=== PATIENT | female | born 1995 | race Caucasian/White ===

== ENCOUNTER 2020-06-04 13:55 | Observation (INO) | payer OTHER, SELFPAY ==
--- NOTE | 2020-06-04 13:50 | PC.NURSE ---
Patient to ED with c/o being currently 32 weeks and has possibly lost mucus plug. Report given to Rosa at this time and transferred to OB at this time via wheelchair.
[2020-06-04 14:10] VITALS: BMI 26.6
[2020-06-04 14:35] VITALS: BP 112/59; PULSE 71
[2020-06-04 14:46] VITALS: BP 123/60; PULSE 82
--- NOTE | 2020-06-07 18:25 | PM.OBTRLD ---
OB - Triage/Final Diagnosis Visit Information Date of evaluation: 06/04/20 Reason for evaluation: threatened labor
== END 2020-06-04 14:50 | disposition home or self-care (01) ==
PROVIDERS: Admitting Provider Obstetrics & Gynecology; Visit Provider Obstetrics & Gynecology
DX: O47.03 False labor before 37 completed weeks of gestation, third trimester (principal); Z3A.32 32 weeks gestation of pregnancy
CPT/HCPCS: 84112; G0378; G0379

== ENCOUNTER 2020-07-20 06:05 | Inpatient (IN) | payer OTHER, SELFPAY ==
[2020-07-20] VITALS (97 sets, daily range): BP systolic 104–141; BP diastolic 44–101; PULSE 64–112; RESP 16–18; TEMP 35.7–37; O2SAT 80–100; BMI 26.7
--- NOTE | 2020-07-20 06:05 | LDADM ---
This patient, Huma Fortune, was admitted to Labor/Delivery/Recovery 102 on 07/20/20 at 06:05. Plans for labor, pain management and were discussed with patient. Patient/family oriented to hospital policies and general routines including ID bracelet, bed and alarms, visiting hours, pain management, procedures, bathroom and other care routines, personal items, smoking policy, room service/diet and guest tray routines, infant security routines, and visiting hours. Patient/Family are encouraged to report perceived risks to care and to ask questions if they do not understand what they are told or what they should do. See OBIX for further documentation.
[2020-07-20 06:42] LABS: Basophils Percent Auto 0.5 % (0.2-1.2); Eosinophils Absolute Auto 0.1 K/mm3 (0-0.3); Eosinophils Percent Auto 0.6 % (0-4.4); Hematocrit 27.7 % (37.0-47.0); Hemoglobin 8.6 g/dL (12.0-15.0); Immature Granulocyte Absolute 0.05 K/mm3 (0.00-0.031); Immature Granulocyte Percent A 0.6 % (0-0.5); Lymphocytes Absolute Auto 1.22 K/mm3 (0.9-3.2); Lymphocytes Percent Auto 15.6 % (18.3-44.2); Mean Corpuscular Hemoglobin 23.2 pg (26-34); Mean Corpuscular Volume 74.9 fl (80-100); Mean Platelet Volume 9.5 fl (7.4-10.4); Monocytes Absolute Auto 0.8 K/mm3 (0.1-0.6); Monocytes Percent Auto 10.5 % (2.6-8.5); Neutrophils Absolute Auto 5.7 K/mm3 (1.3-6.7); Neutrophils Percent Auto 72.2 % (45.5-73.1); Platelet Count Result 211 k/mm3 (150-375); Red Cell Distribution Width 17.5 % (11.5-14.5); White Blood Count 7.8 K/mm3 (4.5-10.0)
[2020-07-20] MEDS: OXYTOCIN 30 UNITS/NS 500 ML 30 UNITS/500 ML BAG IV CONT (06:50)
[2020-07-20] MEDS: LACTATED RINGERS 1,000 ML 125 ML IV CONT ×3 (06:51→13:36)
[2020-07-20 07:56] LABS: Rapid Plasma Reagin Non-Reactive (NonReactive)
--- NOTE | 2020-07-20 08:03 | WPDOBADMIT ---
Obstetrics - Admit Note Admission Note: record reviewed. No pertinent additions to the history and/or any subsequent changes in the physical findings that are not consistent with the expected course of the were found. MIL 39 weeks SVE /-1 arom clear odorless fluid, anticipate vaginal delivery Additions to the history and/or subsequent changes in the physical findings follow. None.
--- NOTE | 2020-07-20 11:44 | WPDANESEPP ---
Anes - Eval Pre Procedure Procedure: labor epidural Date/Time: 07/20/20 11:44 Surgeon: rodney Preop Diagnosis: pain during labor Pre Op Diagnosis: Induction of Labor Patient Data Age: 25 Gender: F Height: 1.65 m Weight: 73 kg Last Vital Signs Temp 35.8 C L 07/20/20 11:37 Pulse 87 07/20/20 11:41 BP 125/76 07/20/20 11:41 Pulse Ox 100 07/20/20 11:43 Allergies Allergy/AdvReac Type Severity Reaction Status Date / Time No Known Allergies Allergy Mild Verified 07/19/20 14:56 Home Medications Medication Instructions Recorded Confirmed Type PNV cmb#95-ferrous fumarate-FA 1 tablet PO DAILY 07/19/20 07/20/20 History [] valacyclovir 1,000 mg PO Q12H 07/19/20 07/20/20 History Laboratory Tests 07/20/20 07/20/20 07/20/20 06:26 06:26 06:26 WBC 7.8 K/mm3 K/mm3 (4.5-10.0) RBC 3.70 M/mm3 L M/mm3 (4.2-5.4) Hgb 8.6 g/dL L g/dL (12.0-15.0) Hct 27.7 % L % (37.0-47.0) MCV 74.9 fl L fl (80-100) MCH 23.2 pg L pg (26-34) MCHC 31.0 g/dl L g/dl (32-36) RDW 17.5 % H % (11.5-14.5) Plt Count 211 k/mm3 k/mm3 (150-375) MPV 9.5 fl fl (7.4-10.4) Immature Gran % (Auto) 0.6 % H % (0-0.5) Neut % (Auto) 72.2 % % (45.5-73.1) Lymph % (Auto) 15.6 % L % (18.3-44.2) [place] % (Auto) 10.5 % H % (2.6-8.5) Eos % (Auto) 0.6 % % (0-4.4) Baso % (Auto) 0.5 % % (0.2-1.2) Lymph # (Auto) 1.22 K/mm3 K/mm3 (0.9-3.2) [place] # (Auto) 0.8 K/mm3 H K/mm3 (0.1-0.6) Eos # (Auto) 0.1 K/mm3 K/mm3 (0-0.3) Baso # (Auto) 0.0 K/mm3 K/mm3 (0.0-0.1) Abs Immat Gran (auto) 0.05 K/mm3 H K/mm3 (0.00-0.031) Absolute Neuts (auto) 5.7 K/mm3 K/mm3 (1.3-6.7) Absolute Nucleated RBC 0.0 K/mm3 K/mm3 (0.0-0.012) Nucleated RBC % 0.0 % % (0.0-0.2) RPR Non-reactive (NonReactive) Blood Type B Positive Antibody Screen Negative Patient hx anesthesia problems: none Family hx anesthesia problems: none [facility] Family History Family History (Updated 07/19/20 @ 14:59 by Angelika Rivas RN) Other Unknown family medical history Social History Social History Smoking status: Former smoker Second hand tobacco smoke exposure: Yes Substance use: current Last use: 07/18/2020 Spiritual care concerns: No Exam Day of Procedure 07/20/20 11:44
[2020-07-20 12:16] LABS: Barbiturate Screen Urine Negative (Negative); Benzodiazepines Screen Urine Negative (Negative)
[2020-07-20 12:18] LABS: Amphetamine Screen Urine Negative (Negative); Cannabinoid Screen Urine Positive (Negative); Cocaine Screen Urine Negative (Negative); Methadone Screen Urine Negative (Negative); Opiate Screen Urine Negative (Negative); Phencyclidine Screen Urine Negative (Negative)
--- NOTE | 2020-07-20 14:01 | PM.OBPRVD ---
OB - Delivery Note Procedure Delivery date: 07/20/20 Procedure: Vaginal delivery. Intrapartal events: None Induction method: AROM and per pitocin protocol Delivery monitor: external FHT and external uterine Route of delivery: Episiotomy description: None Laceration description: None Specimen: No Estimated blood loss (mL): 275 Anesthesia type: Epidural Disposition: other () Baby Date of : 07/20/20 Time of : 13:49 Weeks of gestation at delivery: 39 Infant gender: Female Weight (pounds): 6 Weight (ounces): 14 presentation: vertex position: Right Occiput Posterior Placenta delivery description: Spontaneous cord vessel description: 3 Vessels, Nuchal Cord, Loose and Reduced score one minute: 9 score five minutes: 9
[2020-07-20] MEDS: OXYTOCIN 30 UNITS/NS 500 ML 30 UNITS/500 ML BAG 125 UNITS IV CONT (14:41)
[2020-07-20] MEDS: IBUPROFEN 600 MG TABLET PO (17:29)
--- NOTE | 2020-07-20 17:30 | PC.NURSE ---
PT arrived on unit via wheelchair accompanied by and fob. PT oriented to room 277 and surrounding area. PT introductions made and plan of care discussed per post , pain management, breast feeding, daily care activities. Welcome packet reviewed and discussed. PT verbalized understanding of such care.
[2020-07-20] MEDS: DOCUSATE SODIUM 100 MG CAPSULE PO (17:31)
[2020-07-20] MEDS: POLYSACCHARIDE IRON COMPLEX 150 MG CAPSULE PO (17:31)
[2020-07-20] MEDS: LANOLIN (LANSINOH) 7.5 GM CREAM 1 APPLIC TOPICAL (17:32)
[2020-07-20] MEDS: valACYclovir HCL 500 MG TABLET 1000 MG PO (19:13)
[2020-07-21] MEDS: IBUPROFEN 600 MG TABLET PO ×3 (00:32→16:07)
[2020-07-21 05:08] LABS: Hematocrit 24.5 % (37.0-47.0); Hemoglobin 7.6 g/dL (12.0-15.0)
[2020-07-21 07:30] VITALS: PULSE 72; RESP 18; O2SAT 100
[2020-07-21 07:40] VITALS: BP 100/63; PULSE 72; RESP 18; TEMP 36.6; O2SAT 100
[2020-07-21] MEDS: POLYSACCHARIDE IRON COMPLEX 150 MG CAPSULE PO (07:44)
[2020-07-21] MEDS: DOCUSATE SODIUM 100 MG CAPSULE PO (07:44)
[2020-07-21] MEDS: MULTIVIT/MIN/PREN/FOL AC/IRON TABLET 1 TAB PO (07:44)
[2020-07-21] MEDS: valACYclovir HCL 500 MG TABLET 1000 MG PO (07:45)
--- NOTE | 2020-07-21 08:02 | PM.OBPNVD ---
OB - PN: Subj Subjective Date/time seen: 07/21/20 08:02 Patient comments: no complaints and pain well controlled baby status: doing well OB - PN: Obj Data Labs CBC & Chem 7: 07/21/20 04:25 Labs: Laboratory Results - last 24 hr 07/20/20 07/21/20 09:48 04:25 Hgb 7.6 L Hct 24.5 L Urine Opiates Screen Negative Urine Methadone Screen Negative Ur Barbiturates Screen Negative Ur Phencyclidine Scrn Negative Ur Amphetamine Screen Negative U Benzodiazepines Scrn Negative Urine Cocaine Screen Negative U Cannabinoids Screen Positive A OB - PN A/P Plan day: 1 Plan: routine care and discharge home Comments: Pt desires discharge. RTC in 4 weeks. Time Spent With Patient Time: Total time spent is greater than 50% in coordination of care (as documented) at patient's floor/unit and/or counseling patient: Review of Systems Review of Systems: All systems reviewed & are unremarkable except as noted in HPI and below Exam Narrative: Exam Narrative: Fundus firm. Vaginal flow controlled. Neg edema. Const: General: comfortable Resp: Effort & Inspection: normal respiratory effort Psych: Appearance: grossly normal Affect: normal affect Attitude: cooperative Judgement: Good judgement present (Psych)
--- NOTE | 2020-07-21 09:30 | PC.NURSE ---
Observed mother is able to independently latch with appropriate positioning/alignment. She denies any nipple discomfort, is feeding as required and waking infant to feed if needed. has had several effective feedings in the past 24 hours, and is currently meeting outcomes for weight, output, jaundice and feeding frequencies. Mother chooses to breast and bottle feed. Mother states she feels confident to continue effective /supplementation at home. Reviewed transition to breast milk, signs of adequate intake, and engorgement/relief. Instructed to call ICP if intake/output less than required. Reviewed regular medications mother is taking. Information provided per Josy. Reviewed community resources on the [facility] website and in the Mom/Baby guide. Information on outpatient services provided. Mother has no further questions at this time.
--- NOTE | 2020-07-21 15:01 | PC.NURSE ---
Patient was given the opportunity to view the discharge video Mother & Baby Care, The First Two Weeks and to ask questions. Patient declined viewing the video and has been given the mother/baby guide for home reference.
--- NOTE | 2020-07-23 00:15 | P.DS_ITS ---
DS: Admitting Diagnosis Admitting Diagnosis Admitting Diagnosis: Induction of Labor, stable OB - DS: Summary OB Procedures : None OB Procedures Intrapartum: Spontaneous Vag Delivery OB Procedures: : None Time Spent with Patient Time attestation: Total time spent providing and/or coordinating discharge services: Discharge Plan Discharge Consulting providers: Yadira Garcia Kacey A. Discharging Clinician: Tania Lane Anticipated Discharge Date/Time: 07/21/20 14:00 Patient Disposition: Home, Self-Care Activity: other - see discharge instructions Diet: regular Discharge Instructions: Education: Mom and Baby Guide Given to: Mother Follow-Up: Call your delivering provider's office for an appointment to be seen in: 4 Weeks Mom and baby should come to the [facility] for the follow-up appointment. Appointment Date/Time: Wednesday, July 22, 2020 at 11:00 am What to expect at your follow-up visit: Blood Pressure Check Physical Assessment Call [phone] if you are unable to keep your appointment time. BREAST CARE: * Wear a snug supportive bra. * For engorgement discomfort: Breast Feeding: * Apply warm moist washcloths * Express milk as needed to relieve engorgement * Wear loose clothing * For sore nipples: * Identify correct latch-on * Apply warm moist washcloths before and after nursing * Air dry nipples after nursing * May apply Lansinoh cream to nipples EPISIOTOMY/PERINEAL CARE: * Until bleeding stops, use your wil bottle after urinating * Change your pad frequently throughout the day * You may take sitz baths several times a day (fill your bathtub with warm water and soak for 20 minutes.) Do NOT bathe in the water * No tub baths until seen by your physician - You may shower ACTIVITY: * Rest as much as possible. * Do not exercise or lift anything heavier than your baby (such as laundry or other children.) * Avoid stairs or driving as much as possible. * Do not put anything into the vagina. No douching, tampons, or sexual activity until seen by physician. NOTIFY PHYSICIAN IF YOU HAVE ANY QUESTIONS OR IF ANY OF THE FOLLOWING SYMPTOMS OCCUR: * If your vaginal bleeding becomes foul smelling. * If your vaginal bleeding becomes more heavy than a period or if your bleeding changes from pink to bright red. However, you may pass an occasional walnut- sized clot once or twice for the first week . * If you experience a sharp, shooting pain in you calves. * If you discover a hard, reddened area on your breast or if you experience flu- like symptoms. DIET: * Eat regular, well-balanced meals. * Drink plenty of fluids daily. If , drink to thirst. Stand Alone Forms: General Discharge Information Follow-up/Referrals: Tania Lane MD [Physician] - 4 Weeks Discharge Medications: New polysaccharide iron complex 150 mg iron Capsule 150 mg PO BIDWM Qty: 60 RF: 0 Continued valacyclovir 1 gram Tablet 1,000 mg PO Q12H RF: 0 PNV cmb#95-ferrous fumarate-FA [] 28 mg iron- 800 mcg Tablet 1 tablet PO DAILY RF: 0 Date of admission: 07/20/20 06:05 Primary Care Provider: PHYSICIAN,BOX HINGE AND LOCK ATTACHER Admitting Provider: Tania Lane Discharge Date/Time: 07/21/20 16:50 Attending physician on admission: Tania Lane
== END 2020-07-21 16:50 | disposition home or self-care (01) | DRG 560 ==
LOC: ANHLDR 06:09 → ANHOB2 18:28
PROVIDERS: Advanced Practice Midwife; Admitting Provider Obstetrics & Gynecology; Visit Provider Obstetrics & Gynecology
DX: O99.324 Drug use complicating childbirth (principal); Z37.0 Single live birth; Z3A.39 39 weeks gestation of pregnancy; F12.90 Cannabis use, unspecified, uncomplicated; O99.334 Smoking (tobacco) complicating childbirth; F17.210 Nicotine dependence, cigarettes, uncomplicated; O98.52 Other viral diseases complicating childbirth; B00.9 Herpesviral infection, unspecified
CPT/HCPCS: 36415; 80307; 85014; 85018; 85025; 86592; 86850; 86900; 86901; A9270; J2590; J2795; J7120

== ENCOUNTER 2020-11-12 13:32 | Emergency (ER) | payer OTHER, SELFPAY ==
--- NOTE | ~2020-11-12 | XR_ITS ---
XR hand LT min 3V 11/12/2020 15:16 Indication: Left fourth finger pain after trauma Procedure: 3 views left hand Comparison: No prior studies for comparison. Findings: There is a nondisplaced intra-articular fracture dorsal base fourth distal phalanx. Mild so ft tissue swelling. No other fracture. No foreign bodies. Impression: 1: Nondisplaced intra-articular fracture dorsal base left fourth distal phalanx, best seen on lateral view. Reviewed, dictated and finalized at location A. TAL CONTENT COORDINATOR Impression: 1: Nondisplaced intra-articular fracture dorsal base left fourth distal phalanx , best seen on lateral view.
[2020-11-12 13:56] VITALS: BP 140/80; PULSE 87; RESP 14; TEMP 36.9; O2SAT 100
--- NOTE | 2020-11-12 14:58 | ED.GENADULT ---
HPI - General Adult General Chief complaint: Extremity Injury, Upper Stated complaint: Extremity Injury, Upper Source: patient Mode of arrival: ambulatory Limitations: no limitations History of Present Illness HPI narrative: Patient presents for evaluation of pain in the fourth digit of the left hand. She indicates that she slammed her hand in a car door this morning around 930 when she was attempting to take her child to the doctor. She is noted pain, bruising and swelling in the affected area since that time. She states the pain is throbbing, moderate in severity without numerical rating. She is right-hand dominant. Movement worsens her pain. She has not taken any medication for pain. She is currently breast-feeding. Related Data Home Medications Medication Instructions Recorded Confirmed No Home Medications 11/12/20 11/12/20 Allergies Allergy/AdvReac Type Severity Reaction Status Date / Time No Known Allergies Allergy Mild Verified 11/12/20 14:10 Review of Systems Review of Systems: Narrative: CONSTITUTIONAL: Denies fever, chills, or sweats. EYES: Denies visual changes, redness, or discharge. ENT: Denies rhinorrhea, congestion, sore throat, or otalgia. CARDIOVASCULAR: Denies chest pain, palpitations, or edema. RESPIRATORY: Denies cough or dyspnea. GASTROINTESTINAL: Denies abdominal pain, nausea, vomiting, or diarrhea. GENITOURINARY: Denies dysuria or hematuria. SKIN: Denies rash or itching. Reports bruising to the 4th digit of left hand MUSCULOSKELETAL: Denies back pain. Pain in the fourth digit of the left hand NEUROLOGIC: Denies headache, numbness, dizziness, or weakness. PSYCHIATRIC: Denies anxiety or depression. PMFSH Past Medical History Medical History History of ectopic History of ectopic Family History Family History Other Unknown family medical history Social History Social History Smoking status: Former smoker Second hand tobacco smoke exposure: Yes Substance use: current Last use: 07/18/2020 Spiritual care concerns: No Exam Narrative: Exam Narrative: GENERAL: Well-appearing, well-nourished, and in no acute distress. HEAD: Normocephalic, atraumatic. EYES: PERRLA and EOMI. ENT: Nares clear, no rhinorrhea or epistaxis. Mucous membranes moist. Oropharynx without tonsillar hypertrophy exudate or other lesions. Bilateral TMs pearly arnold nonbulging NECK: Supple. No adenopathy or masses. No carotid bruits or JVD CHEST: Clear to auscultation. No respiratory distress. No wheezes rales or rhonchi HEART: Regular rate and rhythm. No murmur heard. Normal peripheral pulses. ABDOMEN: Soft, nontender, nondistended, normal active bowel sounds. EXTREMITIES: No edema. Unable to fully extend fourth digit of the left hand at the DIP and PIP joints. Tenderness in the middle and distal phalanx of the 4th digit of the left hand. SKIN: Warm, dry, no rash. Ecchymosis noted to the fourth digit of the left hand NEURO: No focal deficits. Alert and oriented x3. PSYCH: Normal mood and affect. Course Course Emergency Course: This is a 25-year-old female who presents with an injury to the fourth digit of the left hand after she slammed her hand in a car door today. X-ray revealed a nondisplaced intra-articular fracture dorsal base left fourth distal phalanx, best seen on lateral view. She was placed in an aluminum splint and provided with a sling. We had a discussion about decision to discontinue breast-feeding for analgesics versus using ibuprofen for pain. She elected to use ibuprofen for pain and would like to forego any pain medications that would prevent her from continuing to breast-feed. She is to follow-up with hand surgeon return for any worsening symptoms. Vital Signs Vital signs: Vital Signs
== END 2020-11-12 15:50 | disposition home or self-care (01) ==
PROVIDERS: Emergency Provider Nurse Practitioner
DX: S62.661A Nondisplaced fracture of distal phalanx of left index finger, initial encounter for closed fracture (principal); W23.0XXA Caught, crushed, jammed, or pinched between moving objects, initial encounter; Z87.891 Personal history of nicotine dependence
CPT/HCPCS: 29130; 73130; 99214; A4565; G0463

== ENCOUNTER 2022-09-30 08:36 | Emergency (ER) | payer OTHER, SELFPAY ==
--- NOTE | ~2022-09-30 | XR_ITS ---
EXAMINATION: XR chest 2V 09/30/2022 09:12 INDICATION: Cough and chest discomfort PROCEDURE: 2 view chest COMPARISON: No prior studies for comparison. FINDINGS: The lungs are clear. The cardiomediastinal silhouette is within normal limits. There are no pleural effusions. There is no pneumothorax suspected. IMPRESSION: 1: NO ACUTE CARDIOPULMONARY DISEASE. Reviewed, dictated and finalized at location A. D TECHNICIAN
--- NOTE | 2022-09-30 08:40 | ED.URI ---
HPI - URI/Sore Throat General Chief Complaint: Upper Respiratory Infection Stated Complaint: coughing burning chest Time Seen by Provider: 09/30/22 08:40 Source: patient and RN notes reviewed History of Present Illness HPI Narrative: Patient is a 27-year-old female who presents to the Urgent Care with complaints of cough and chest congestion causing chest discomfort. Patient denies any nausea, vomiting or shortness of breath. States that it started Saturday with a low-grade fever and she did take some sinus medication. Denies any ill exposures. Denies any cardiac or pulmonary history. No other acute complaints. No acute distress noted. Patient aware of the plan of care. Some parts of this dictation were generated by voice recognition software and may contain typographical and/or grammatical inaccuracies. Related Data Allergies Allergy/AdvReac Type Severity Reaction Status Date / Time No Known Allergies Allergy Mild Verified 09/30/22 09:01 Review of Systems Review of Systems: CONSTITUTIONAL: Denies fever, chills, or sweats. EYES: Denies visual changes, redness, or discharge. ENT: Denies rhinorrhea, congestion, sore throat, or otalgia. CARDIOVASCULAR: Denies chest pain, palpitations, or edema. RESPIRATORY: reports of cough without dyspnea GASTROINTESTINAL: Denies abdominal pain, nausea, vomiting, or diarrhea. GENITOURINARY: Denies dysuria or hematuria. SKIN: Denies rash or itching. MUSCULOSKELETAL: Denies back pain, joint pain, or myalgia. NEUROLOGIC: Denies headache, numbness, or weakness. All other systems reviewed are negative, except as documented in HPI. [facility] Past Medical History Medical History History of ectopic History of ectopic Family History Family History Other Unknown family medical history Social History Social History Smoking status: Former smoker Second hand tobacco smoke exposure: Yes Substance use: current Last use: 07/18/2020 Spiritual care concerns: No Comments At the time of my signature, I reviewed and agree with the nursing past medical, surgical, social, and family history. There is no relevant family history pertinent to the patient complaint. Exam Narrative: GENERAL: This is a well-nourished, well-developed patient, in no apparent distress. HEAD: normocephalic, atraumatic. EYES: PERRL. Sclera clear/white. Vision is grossly intact. EARS: External ears normal, auditory canals clear and without drainage, TMs normal without perforation. Hearing grossly intact. NOSE: External nose normal with no obvious nasal discharge, nares without redness, no rhinorrhea. THROAT: Mucous membranes moist, posterior pharynx clear. mild postnasal drainage NECK: Neck supple CARDIOVASCULAR: Regular rate and rhythm without murmurs, gallops, or rubs. RESPIRATORY: Clear to auscultation. Breath sounds equal bilaterally. No wheezes, rales, or rhonchi. SKIN: warm, intact with no suspicious lesions or rash, good texture and turgor. NEURO: awake, alert, and oriented to person, place and time. There were no obvious focal neurologic abnormalities. EXTREMITIES: No clubbing, cyanosis, or edema. Course Course Level of Care: Express Care Visit Vital Signs Vital signs: Vital Signs Temperature 98.0 F 09/30/22 08:48 Pulse Rate 75 09/30/22 08:48 Respiratory Rate 14 09/30/22 08:48 Blood Pressure 118/70 09/30/22 08:48 Pulse Oximetry 100 09/30/22 08:48 Oxygen Delivery Room Air 09/30/22 08:48 Temperature 98.0 F 09/30/22 08:48 Pulse Rate 75 09/30/22 08:48 Respiratory Rate 14 09/30/22 08:48 Blood Pressure 118/70 09/30/22 08:48 Pulse Oximetry 100 09/30/22 08:48 Oxygen Delivery Room Air 09/30/22 08:48 reviewed MDM - URI/Sore Throat MDM Narrative Medical decisio
[2022-09-30 08:48] VITALS: BP 118/70; PULSE 75; RESP 14; TEMP 36.7; O2SAT 100
== END 2022-09-30 09:30 | disposition home or self-care (01) ==
PROVIDERS: Emergency Provider Nurse Practitioner Family
DX: M94.0 Chondrocostal junction syndrome [Tietze] (principal); Z87.891 Personal history of nicotine dependence
CPT/HCPCS: 71046; 99213; G0463

== ENCOUNTER 2023-06-21 18:16 | Emergency (ER) | payer OTHER, SELFPAY ==
--- NOTE | 2023-06-21 18:19 | ED.SKABFB ---
HPI - Skin/Abscess/Foreign Bdy General Chief complaint: Skin/Abscess/Foreign Body Stated complaint: Poss staff infection Time Seen by Provider: 06/21/23 18:18 Source: patient Mode of arrival: ambulatory Limitations: no limitations History of Present Illness HPI narrative: Huma is a 27-year-old female patient presenting to the clinic today with complaints of a possible staph infection. She reports she has multiple sores on her abdomen, arms, legs, and face that she thinks may be infected. States she does pick at her skin a lot. She does appear anxious and tearful in the clinic Related Data Allergies Allergy/AdvReac Type Severity Reaction Status Date / Time No Known Allergies Allergy Mild Verified 06/21/23 18:32 Review of Systems Review of Systems: Pertinent positives per HPI. Patient denies any fever, chills, headache, visual changes, dizziness, cough, runny nose, sore throat, shortness of breath, chest pain, palpitations, nausea, vomiting, diarrhea, constipation, abdominal pain, or any urinary issues. [facility] Past Medical History Medical History History of ectopic History of ectopic Family History Family History Other Unknown family medical history Social History Social History Smoking status: Former smoker Second hand tobacco smoke exposure: Yes Substance use: current Last use: 07/18/2020 Spiritual care concerns: No Comments At the time of my signature, I reviewed and agree with the nursing past medical, surgical, social, and family history. There is no relevant family history pertinent to the patient complaint. Exam Narrative: General: Well-developed, well nourished, in no apparent distress Head: Normocephalic, atraumatic. Cardio: Regular rate and rhythm, s1 and s2 normal, no murmur appreciated. Resp: Clear to auscultation bilaterally, no rhonchi, rales, wheezing or rubs. Integumentary: Ivan, warm, and dry, red raised tender to palpation with mild induration scabbed/pustular lesions with yellow crusting to legs, abdomen, arms, and face Course Course Emergency Course: Portions of this record may have been created with voice recognition software. Level of Care: Express Care Visit Vital Signs Vital signs: Vital signs reviewed MDM - Skin/Abscess/Foreign Bdy MDM Narrative Medical decision making narrative: At the time of visit patient is sitting on the exam table tearful and anxious. At the patient if she is okay and she states that she is under lot of stress right now but did not wish to indulge further. I suspect patient has a staph infection. Prescription for doxycycline was sent to the pharmacy and supportive measures were discussed with the patient and she voiced understanding of the discharge instructions and agrees to treatment plan Differential Diagnosis Differential diagnosis: Likely abscess of skin or subcutaneous tissue, cellulitis, eczema, insect bites, impetigo and contact dermatitis Discharge Plan Discharge Clinical Impression: Infection, skin, staph Patient Disposition: Home, Self-Care Condition: Stable Instructions: Antibiotic Form, Wound Infection (ED) Additional Instructions: Keep wound clean and dry Avoid popping or scratching sores May take Tylenol/Motrin as needed for pain Take doxycycline as prescribed Follow-up with your PCP in 1 week if symptoms persist or sooner if they worsen Prescriptions: New doxycycline hyclate 100 mg tablet 100 mg PO BID 10 Days Qty: 20 0RF Follow-up/Referrals: UNKNOWN,DOCTOR [Non-Staff] - Time of Disposition: 18:41 Quality NIHSS Nursing Documentation ED NIHSS nursing documentation: reviewed/agree
[2023-06-21 18:23] VITALS: BP 139/93; PULSE 87; RESP 18; TEMP 36.9; O2SAT 97
== END 2023-06-21 18:42 | disposition home or self-care (01) ==
PROVIDERS: Emergency Provider Nurse Practitioner Family
DX: L08.9 Local infection of the skin and subcutaneous tissue, unspecified (principal); B95.8 Unspecified staphylococcus as the cause of diseases classified elsewhere; Z87.891 Personal history of nicotine dependence
CPT/HCPCS: 99213; G0463

== ENCOUNTER 2023-09-26 14:26 | Emergency (ER) | payer OTHER, SELFPAY ==
[2023-09-26 14:40] VITALS: BP 139/64; PULSE 94; RESP 16; TEMP 37.6; O2SAT 99
--- NOTE | 2023-09-26 14:55 | ED.GENADULT ---
HPI - General Adult General Chief complaint: Back Pain/Injury Stated complaint: Fall Injury/Back Injury Time Seen by Provider: 09/26/23 14:55 Source: patient, RN notes reviewed and old records reviewed Mode of arrival: ambulatory Limitations: no limitations History of Present Illness HPI narrative: 28 year old female presents to city [facility] care with complaints of slipping on a piece of paper on her living room floor and falling hitting her mid back on the wood on her couch this morning. Patient reports pain across thoracic spine area but mainly on right side. Patient has no redness, ecchymosis or any abrasions to skin on her back. Patient rates her pain as 8/10 has not taken any OTC medications for pain.Patient is able to ambulate with steady guarded gait,denies any tingling or numbness to her extremities. MD complaint: mid back Onset (ago): hour(s) (since this morning) Location: back Severity scale (1-10): 8 Treatments prior to arrival: none Related Data Allergies Allergy/AdvReac Type Severity Reaction Status Date / Time No Known Allergies Allergy Mild Verified 06/21/23 18:32 Review of Systems Review of Systems: CONSTITUTIONAL: Denies fever, chills, or sweats. EYES: Denies visual changes, redness, or discharge. ENT: Denies rhinorrhea, congestion, sore throat, or otalgia. CARDIOVASCULAR: Denies chest pain, palpitations, or edema. RESPIRATORY: Denies cough or dyspnea. GASTROINTESTINAL: Denies abdominal pain, nausea, vomiting, or diarrhea. GENITOURINARY: Denies dysuria or hematuria. SKIN: Denies rash or itching. MUSCULOSKELETAL: Reports mid thoracic back pain especially to right side of back, joint pain, or myalgia. NEUROLOGIC: Denies headache, numbness, or weakness. PSYCHIATRIC: Reports history of anxiety or depression. All systems reviewed & are unremarkable except as noted in HPI and below PMFSH Past Medical History Medical History (Updated 09/28/23 @ 08:14 by Shi Dumont NP) Ectopic Family History Family History Other Unknown family medical history Social History Social History (Updated 09/28/23 @ 08:14 by Shi Dumont NP) Smoking status: Current every day smoker Tobacco type: e-cigarettes/vaping Second hand tobacco smoke exposure: Yes Alcohol intake: unknown Substance use: unknown Last use: 07/18/2020 Living arrangements: with family Gender identity (if verbalized by the patient): Female Spiritual care concerns: No Comments At time of signature, agree with nursing past medical, surgical, social and family history. There is no relevant family history pertinent to the presenting complaint Exam Narrative: GENERAL: Well-appearing, well-nourished, and in no acute distress. HEAD: Normocephalic, atraumatic. EYES: PERRLA and EOMI. ENT: Nares clear, no rhinorrhea or epistaxis. Mucous membranes moist. NECK: Supple.no lymphadenopathy CHEST: Clear to auscultation. No respiratory distress.SAO2 99% on room air HEART: Regular rate and rhythm. No murmur heard. Normal peripheral pulses. ABDOMEN: Soft, nontender, nondistended, normal active bowel sounds. EXTREMITIES: Normal range of motion. No edema.Reports pain across thoracic back mainly to right side, no redness to skin or bruising.Full mobility to all extremities, strong pulses,denies any tingling or numbness to extremities SKIN: Warm, dry, no rash. NEURO: No focal deficits. Alert and oriented x3.steady gait Course Course Emergency Course: Patient is aware of diagnosis, understands and agrees to treatment plan.? Anticipatory guidance given.? Patient agrees to follow-up as directed and is aware of reasons to seek care at the emergency department. Portions of this record may have been created with voice recognition software Level of Care: Express Care Visit Vital Signs Vital signs: Vital Signs Temperature 37.6 C 09/26/23 14:40 Pulse Rate 94 09/26/23 14:4
== END 2023-09-26 15:26 | disposition home or self-care (01) ==
PROVIDERS: Emergency Provider Registered Nurse
DX: M54.6 Pain in thoracic spine (principal); F17.290 Nicotine dependence, other tobacco product, uncomplicated
CPT/HCPCS: 99213; G0463

== ENCOUNTER 2024-01-17 09:14 | Emergency (ER) | payer OTHER, SELFPAY ==
[2024-01-17 09:20] VITALS: BP 118/63; PULSE 74; RESP 18; TEMP 37.1; O2SAT 100
--- NOTE | 2024-01-17 10:22 | ED.PREGNANCY ---
HPI - General Chief complaint: OB/Uterine Contractions Stated complaint: , cramping Time Seen by Provider: 01/17/24 09:29 Source: patient Mode of arrival: ambulatory Limitations: no limitations History of Present Illness HPI Narrative: Patient is a 28 y/o female who presents to the ED with c/o lower abdominal cramping. Patient is and currently around 18 weeks gestation. Confirmed IUP. She reports she has been under increased stress over the last several days and had intermittent lower abdominal cramping. She also reports having decreased movement. She became concerned and wanted to be evaluated. She sees Yadira Garcia with [facility]'s [place]. She does also voice concern for a UTI or yeast infection, reporting vaginal irritation, 1 episode of spotting with wiping. Reports intermittent nausea, denies vomiting. Denies fevers. Denies back pain. Related Data Allergies Allergy/AdvReac Type Severity Reaction Status Date / Time No Known Allergies Allergy Mild Verified 01/17/24 09:15 Review of Systems Review of Systems: CONSTITUTIONAL: Denies fever, chills, or sweats. GASTROINTESTINAL: See HPI. GENITOURINARY: See HPI. MUSCULOSKELETAL: Denies back pain, extremity pain, myalgia. All systems reviewed & are unremarkable except as noted in HPI and below PMFSH Past Medical History Medical History Ectopic Family History Family History Other Unknown family medical history Social History Social History Smoking status: Current every day smoker Tobacco type: e-cigarettes/vaping Second hand tobacco smoke exposure: Yes Alcohol intake: unknown Substance use: unknown Last use: 07/18/2020 Living arrangements: with family Gender identity (if verbalized by the patient): Female Spiritual care concerns: No Exam Narrative: GENERAL: Well appearing, well-nourished, non-toxic, in no acute distress. HEAD: Normocephalic, atraumatic. RESPIRATORY: Airway patent, respirations nonlabored. Clear to auscultation bilaterally, no rales, rhonchi, wheezing. CARDIOVASCULAR: Regular rate and rhythm ABDOMINAL: Soft, no significant tenderness throughout abdomen, nondistended. Normoactive BS. MUSCULOSKELETAL: Moves all extremities. No gross deformities. SKIN: Warm, dry, normal color. NEURO: A&O X3. Speech clear. PSYCHIATRIC: Appropriate mood and affect. Normal interaction. Course Vital Signs Vital signs: Vital Signs Temperature 98.7 F 01/17/24 09:20 Pulse Rate 74 01/17/24 09:20 Respiratory Rate 18 01/17/24 09:20 Blood Pressure 118/63 01/17/24 09:20 Pulse Oximetry 100 01/17/24 09:20 Oxygen Delivery Room Air 01/17/24 09:20 Temperature 98.7 F 01/17/24 09:20 Pulse Rate 70 01/17/24 11:37 Respiratory Rate 16 01/17/24 11:37 Blood Pressure 120/65 01/17/24 11:37 Pulse Oximetry 100 01/17/24 11:37 Oxygen Delivery Room Air 01/17/24 09:20 MDM - OB/Uterine Contractions MDM Narrative Medical decision making narrative: Patient presented to ED with intermittent lower abdominal cramping over the last couple days, currently 18 weeks gestation. Confirmed IUP. Reporting 1 episode of vaginal spotting vs hematuria. Concerned for UTI vs yeast infection. heart tones evaluated in the ED and appropriate at 146. UA with 1+ leuk esterase, 6-10 WBC. Sent for culture. Will treat. Patient will be started on Keflex for UTI. Will also give clotrimazole cream for potential yeast infection. patient is otherwise stable. No evidence of hemodynamic instability. Vitals have remained stable throughout ED stay. Advised patient have close follow-up with OBGYN for further evaluation. Given return precautions. Discharged in stable condition. Medical Records Attestatio
[2024-01-17 10:57] LABS: Appearance Urine Clear (Clear); Bacteria Urine Rare /hpf; Bilirubin Urine Negative (Negative); Blood Urine Negative (Negative); Color Urine Yellow (Yellow); Glucose Urine UA Negative (Negative); Ketones Urine Negative (Negative); Leukocyte Esterase Ur 1+ LEU/UL (Negative); Nitrate Urine Negative (Negative); Non Pathogenic Casts 0-2; Protein Urine Negative (Negative); RBC Urine 0-2 /hpf (0-2); Specific Grav Ur 1.021 (1.001-1.035); Squamous Epithelial Cell Urine Moderate /hpf (Few)
[2024-01-17 11:01] LABS: Add Urine Microscopic? YES
[2024-01-17 11:37] VITALS: BP 120/65; PULSE 70; RESP 16; O2SAT 100
== END 2024-01-17 11:38 | disposition home or self-care (01) ==
PROVIDERS: Emergency Provider Physician Assistant; Referring Provider Family Medicine
DX: O26.892 Other specified pregnancy related conditions, second trimester (principal); R10.31 Right lower quadrant pain; R10.32 Left lower quadrant pain; O23.42 Unspecified infection of urinary tract in pregnancy, second trimester; N39.0 Urinary tract infection, site not specified; O99.332 Smoking (tobacco) complicating pregnancy, second trimester; F17.290 Nicotine dependence, other tobacco product, uncomplicated; Z3A.18 18 weeks gestation of pregnancy
CPT/HCPCS: 87086; 99283

== ENCOUNTER 2024-03-30 12:41 | Outpatient (CLI) | payer OTHER, SELFPAY | END 2024-03-30 12:42 | disposition home or self-care (01) | LOC: ANHLAB 12:44 | PROVIDERS: Visit Provider Advanced Practice Midwife | DX: Z00.00 Encounter for general adult medical examination without abnormal findings (principal); X58.XXXA Exposure to other specified factors, initial encounter | CPT/HCPCS: 87045; 87177; 87209; 87427; 87449 ==

== ENCOUNTER 2024-04-10 11:45 | Outpatient (CLI) | payer OTHER, SELFPAY ==
[2024-04-10 12:16] VITALS: BP 131/79; PULSE 81
[2024-04-10 12:25] LABS: Basophils Percent Auto 0.3 % (0.2-1.2); Eosinophils Percent Auto 0.3 % (0-4.4); Hematocrit 34.5 % (37.0-47.0); Hemoglobin 12.3 g/dL (12.0-15.0); Immature Granulocyte Absolute 0.07 K/mm3 (0.00-0.031); Immature Granulocyte Percent A 0.8 % (0-0.5); Lymphocytes Percent Auto 13.3 % (18.3-44.2); Mean Corpuscular HGB Conc 35.7 g/dl (32-36); Mean Corpuscular Hemoglobin 32.6 pg (26-34); Mean Corpuscular Volume 91.5 fl (80-100); Mean Platelet Volume 10.2 fl (7.4-10.4); Monocytes Absolute Auto 0.8 K/mm3 (0.1-0.6); Monocytes Percent Auto 8.7 % (2.6-8.5); Neutrophils Absolute Auto 6.9 K/mm3 (1.3-6.7); Neutrophils Percent Auto 76.6 % (45.5-73.1); Platelet Count Result 151 k/mm3 (150-375); Red Blood Count 3.77 M/mm3 (4.2-5.4); Red Cell Distribution Width 13.3 % (11.5-14.5); White Blood Count 9.1 K/mm3 (4.5-10.0)
[2024-04-10 12:29] LABS: Appearance Urine Clear (Clear); Bacteria Urine None Seen /hpf; Bilirubin Urine Negative (Negative); Blood Urine Negative (Negative); Color Urine Yellow (Yellow); Glucose Urine UA Negative (Negative); Ketones Urine Negative (Negative); Leukocyte Esterase Ur Trace LEU/UL (Negative); Nitrate Urine Negative (Negative); Non Pathogenic Casts 0-2; Protein Urine Negative (Negative); RBC Urine 0-2 /hpf (0-2); Squamous Epithelial Cell Urine Occasional /hpf (Few); Urobilinogen Urine 0.2 mg/dL (<2.0); pH Urine 7.5 (5.0-9.0)
[2024-04-10 12:30] VITALS: BP 119/70; PULSE 76
[2024-04-10 12:33] LABS: Creatinine Urine 65.6 mg/dL; Total Protein Urine Random 9 mg/dL; Ur Ttl Prot Creatinine Ratio 0.14 mg/mg (0-0.20)
[2024-04-10 12:38] LABS: Add Urine Microscopic? YES; Alanine Aminotransferase 14 U/L (6-35); Albumin Level 3.8 g/dL (3.5-5.1); Alkaline Phosphatase 62 U/L (38-126); Anion Gap 8 mmol/L (4-12); Aspartate Amino Transferase 24 U/L (14-36); Bilirubin,Total 0.5 mg/dL (0.2-1.3); Blood Urea Nitrogen 7 mg/dL (7-17); Calcium 8.6 mg/dL (8.4-10.2); Carbon Dioxide 18 mmol/L (22-30); Chloride 108 mmol/L (98-107); Estimated Glomerular Filt Rate > 60; Glucose 80 mg/dL (65-110); Potassium 3.7 mmol/L (3.4-5.0); Sodium 134 mmol/L (137-145); Uric Acid 3.7 mg/dL (2.5-7.5)
[2024-04-10 12:45] VITALS: BP 119/61; PULSE 68
[2024-04-10 13:00] VITALS: BP 124/75; PULSE 78
[2024-04-10 14:39] VITALS: BP 131/79; PULSE 73
[2024-04-10 14:53] VITALS: BP 119/70
== END 2024-04-10 13:13 | disposition home or self-care (01) ==
LOC: ANHOBOP 11:50 → ANHOBPP 11:52
PROVIDERS: Visit Provider Advanced Practice Midwife
DX: O13.9 Gestational [pregnancy-induced] hypertension without significant proteinuria, unspecified trimester (principal); Z3A.00 Weeks of gestation of pregnancy not specified
CPT/HCPCS: 36415; 59025; 80053; 81001; 82570; 84156; 84550; 85025; 87086; 99199

== ENCOUNTER 2024-06-10 00:03 | Inpatient (IN) | payer OTHER, SELFPAY ==
[2024-06-10] VITALS (198 sets, daily range): BP systolic 57–150; BP diastolic 28–125; PULSE 53–159; RESP 12–18; TEMP 36.6–37.3; O2SAT 69–100; BMI 29.9
--- NOTE | 2024-06-10 00:38 | LDADM ---
This patient, Huma Fortune, was admitted to Labor/Delivery/Recovery 106 on 06/10/24 at 00:03. Plans for labor, pain management and were discussed with patient. Patient/family oriented to hospital policies and general routines including ID bracelet, bed and alarms, visiting hours, pain management, procedures, bathroom and other care routines, personal items, smoking policy, room service/diet and guest tray routines, infant security routines, and visiting hours. Patient/Family are encouraged to report perceived risks to care and to ask questions if they do not understand what they are told or what they should do. See OBIX for further documentation.
[2024-06-10 00:58] LABS: Basophils Percent Auto 0.3 % (0.2-1.2); Eosinophils Percent Auto 0.5 % (0-4.4); Hematocrit 33.4 % (37.0-47.0); Hemoglobin 11.7 g/dL (12.0-15.0); Immature Granulocyte Absolute 0.07 K/mm3 (0.00-0.031); Immature Granulocyte Percent A 0.8 % (0-0.5); Lymphocytes Absolute Auto 1.36 K/mm3 (0.9-3.2); Lymphocytes Percent Auto 15.3 % (18.3-44.2); Mean Corpuscular Volume 91.3 fl (80-100); Mean Platelet Volume 10.5 fl (7.4-10.4); Monocytes Percent Auto 10.8 % (2.6-8.5); Neutrophils Absolute Auto 6.4 K/mm3 (1.3-6.7); Neutrophils Percent Auto 72.3 % (45.5-73.1); Platelet Count Result 165 k/mm3 (150-375); Red Blood Count 3.66 M/mm3 (4.2-5.4); Red Cell Distribution Width 12.9 % (11.5-14.5); White Blood Count 8.9 K/mm3 (4.5-10.0)
[2024-06-10] MEDS: LACTATED RINGERS 1,000 ML 125 ML IV CONT ×2 (01:34→07:52)
[2024-06-10] MEDS: OXYTOCIN 30 UNITS/NS 500 ML 30 UNITS/500 ML BAG IV CONT (01:35)
[2024-06-10 01:41] LABS: Rapid Plasma Reagin Non-Reactive (NonReactive)
[2024-06-10 01:48] LABS: HIV 1/2 Ab P24 Ag Result Negative (Negative)
--- NOTE | 2024-06-10 06:52 | WPDANESEPP ---
Anes - Eval Pre Procedure Procedure: labor epidural Date/Time: 06/10/24 06:52 Surgeon: rodney Preop Diagnosis: pain during labor Pre Op Diagnosis: IOL Patient Data Age: 28 Gender: F Height: 1.63 m Weight: 79 kg Last Vital Signs Temp 36.6 C 06/10/24 04:00 Pulse 71 06/10/24 04:30 BP 124/77 06/10/24 04:30 Allergies Allergy/AdvReac Type Severity Reaction Status Date / Time No Known Allergies Allergy Mild Verified 01/17/24 09:15 Home Medications Medication Instructions Recorded Confirmed Type sertraline 50 mg tablet (Zoloft) 50 mg PO DAILY 05/30/24 05/30/24 History valacyclovir 500 mg tablet 500 mg PO DAILY 05/30/24 05/30/24 History (Valtrex) Laboratory Tests 06/10/24 00:20 WBC 8.9 K/mm3 (4.5-10.0) RBC 3.66 L M/mm3 (4.2-5.4) Hgb 11.7 L g/dL (12.0-15.0) Hct 33.4 L % (37.0-47.0) MCV 91.3 fl (80-100) MCH 32.0 pg (26-34) MCHC 35.0 g/dl (32-36) RDW 12.9 % (11.5-14.5) Plt Count 165 k/mm3 (150-375) MPV 10.5 H fl (7.4-10.4) Immature Gran % (Auto) 0.8 H % (0-0.5) Neut % (Auto) 72.3 % (45.5-73.1) Lymph % (Auto) 15.3 L % (18.3-44.2) [place] % (Auto) 10.8 H % (2.6-8.5) Eos % (Auto) 0.5 % (0-4.4) Baso % (Auto) 0.3 % (0.2-1.2) Lymph # (Auto) 1.36 K/mm3 (0.9-3.2) [place] # (Auto) 1.0 H K/mm3 (0.1-0.6) Eos # (Auto) 0.0 K/mm3 (0-0.3) Baso # (Auto) 0.0 K/mm3 (0.0-0.1) Abs Immat Gran (auto) 0.07 H K/mm3 (0.00-0.031) Absolute Neuts (auto) 6.4 K/mm3 (1.3-6.7) Absolute Nucleated RBC 0.000 K/mm3 (0.0-0.012) Nucleated RBC % 0.0 % (0.0-0.2) RPR Non-reactive (NonReactive) HIV 1&2 Ab/P24 Ag 4thGn Negative (Negative) Blood Type B Positive Antibody Screen Negative Patient hx anesthesia problems: none Family hx anesthesia problems: none Results Review: All pre-operative results and documents have been reviewed as part of the pre-operative evaluation. [facility] Past Medical History Medical History (Updated 06/10/24 @ 06:53 by Janelle Ventura CRNA) Anxiety Depression Ectopic IUP (intrauterine ), incidental Overweight PTSD (post-traumatic stress disorder) Family History Family History Other Unknown family medical history Social History Social History Smoking status: Former smoker Tobacco type: cigarettes Second hand tobacco smoke exposure: Yes Smoking end date: 06/14/16 Alcohol intake: unknown Substance use: never Other substance usage details: daily vape Last use: daily Do You Feel Safe in your Home?: Yes Lack of Transportation: No Lack of Food: Never True Current Housing: I Have Housing Concerned About Future Housing: No Difficulty Paying Gas/Electric Bills: No Difficulty Paying for Meds: No Currently Unemployed: No Education: High School Diploma/GED Difficulty w/ Childcare or Family Care: No Living arrangements: with family Gender identity (if verbalized by the patient): Female Spiritual care concerns: No Exam Day of Procedure 06/10/24 06:52
--- NOTE | 2024-06-10 06:56 | P.PNAN_ITS ---
Anes - Eval Final PreProcedure Day of Procedure 06/10/24 06:56 Patient weight: overweight Heart: regular rate and rhythm Lungs: clear to auscultation Airway: Mallampati scale class III Neurological: alert and oriented Last oral intake: >/= 8 hours ASA classification: II Emergent: no Anesthetic plan: proceed Anesthesia type and monitoring: general and standard monitoring Results Review: All pre-operative results and documents have been reviewed as part of the pre- operative evaluation. Informed Consent: The patient's anesthetic plan and its attendant risks and benefits were discussed with the patient/family/POA. Questions were solicited and answers provided to the satisfaction of the patient/family/POA.
--- NOTE | 2024-06-10 07:03 | P.PNAN_ITS ---
Anes - Eval Final PreProcedure Day of Procedure 06/10/24 07:03 Patient weight: obese Heart: regular rate and rhythm Lungs: clear to auscultation Airway: Mallampati scale class III Neurological: alert and oriented Last oral intake: >/= 8 hours ASA classification: II Emergent: no Anesthetic plan: proceed Anesthesia type and monitoring: general and standard monitoring Results Review: All pre-operative results and documents have been reviewed as part of the pre- operative evaluation. Informed Consent: The patient's anesthetic plan and its attendant risks and benefits were discussed with the patient/family/POA. Questions were solicited and answers provided to the satisfaction of the patient/family/POA.
--- NOTE | 2024-06-10 07:50 | WPDOBADMIT ---
Obstetrics - Admit Note Admission Note: record reviewed. No pertinent additions to the history and/or any subsequent changes in the physical findings that are not consistent with the expected course of the were found. Additions to the history and/or subsequent changes in the physical findings follow. SVE 2/80/-1 AROM moderate amount of clear, odorless fluid, anticipate vaginal delivery
[2024-06-10] MEDS: miSOPROStol 200 MCG TABLET 800 MCG (11:18)
[2024-06-10] MEDS: fentaNYL CITRATE INJ (*CRX) 100 MCG/2 ML VIAL IV PUSH (11:24)
[2024-06-10] MEDS: METHYLERGONOVINE MALEATE 0.2 MG/ML VIAL IM (11:27)
[2024-06-10] MEDS: TRANEXAMIC ACID 1,000MG/ISO100 1,000 MG/100 ML BAG 200 MG IVPB (11:29)
[2024-06-10 11:38] LABS: Basophils Percent Auto 0.2 % (0.2-1.2); Eosinophils Percent Auto 0.3 % (0-4.4); Hematocrit 31.2 % (37.0-47.0); Hemoglobin 10.7 g/dL (12.0-15.0); Immature Granulocyte Absolute 0.06 K/mm3 (0.00-0.031); Immature Granulocyte Percent A 0.7 % (0-0.5); Lymphocytes Absolute Auto 1.04 K/mm3 (0.9-3.2); Lymphocytes Percent Auto 11.4 % (18.3-44.2); Mean Corpuscular HGB Conc 34.3 g/dl (32-36); Mean Corpuscular Hemoglobin 32.1 pg (26-34); Mean Corpuscular Volume 93.7 fl (80-100); Mean Platelet Volume 10.3 fl (7.4-10.4); Monocytes Absolute Auto 0.9 K/mm3 (0.1-0.6); Monocytes Percent Auto 9.3 % (2.6-8.5); Neutrophils Absolute Auto 7.1 K/mm3 (1.3-6.7); Neutrophils Percent Auto 78.1 % (45.5-73.1); Platelet Count Result 142 k/mm3 (150-375); Red Blood Count 3.33 M/mm3 (4.2-5.4); Red Cell Distribution Width 13.1 % (11.5-14.5); White Blood Count 9.1 K/mm3 (4.5-10.0)
--- NOTE | 2024-06-10 11:40 | P.PCNOB_ITS ---
OB - Vaginal Delivery Note Procedure Delivery date: 06/10/24 Events: Intrauterine Growth Restriction (IUGR) Induction method: AROM and Per Pitocin Protocol Delivery monitor: External FHT and External Uterine Route of delivery: Episiotomy description: None Laceration Description: Labial Delivery repair: vicryl Specimen: Yes Quantitative Blood Loss (ml): 2,500 Anesthesia type: Epidural Disposition: Floor [place] Baby Date of : 06/10/24 Time of : 11:03 Gestational Age by Date: 39 gender: Female presentation: vertex position: Left Occiput Anterior Placenta delivery description: Manual Removal Cord Vessel Description: 3 Vessels, True Knot and Around Body (x1) Narrative: after delivery of placenta, fundus boggy and did not firm with massage, medications given, team ob called and ANMOL placed, Dr. Lane at bedside, schmitz catheter placed. see rn notes for time, bedside US confirmed ANMOL placement and no free fluid in the uterus, code ob complete and fundus firm, bleeding minimal.
[2024-06-10] MEDS: ONDANSETRON INJ 4 MG/2 ML VIAL IV PUSH (11:45)
[2024-06-10 11:48] LABS: Prothrombin Time 13.6 Seconds (11.1-14.7)
[2024-06-10 11:49] LABS: Fibrinogen 339 mg/dl (215-510); Partial Thromboplastin Time 28.2 Seconds (22.3-36.8)
[2024-06-10 12:08] LABS: D Dimer 0.69 ug/mL (<0.48)
[2024-06-10] MEDS: LACTATED RINGERS 1,000 ML 200 ML IV CONT (12:20)
[2024-06-10] MEDS: OXYTOCIN 30 UNITS/NS 500 ML 30 UNITS/500 ML BAG 125 UNITS IV CONT (12:37)
[2024-06-10] MEDS: WITCH HAZEL 40 PADS 1 PAD TOPICAL (15:03)
[2024-06-10] MEDS: IBUPROFEN 600 MG TABLET PO ×2 (15:03→21:46)
[2024-06-10] MEDS: BENZOCAINE 20% AER SPR (*SP) 56 GM CAN 1 SPRAY TOPICAL (15:03)
[2024-06-10] MEDS: ACETAMINOPHEN 325 MG TABLET 650 MG PO (15:04)
[2024-06-10] MEDS: TUBING, BLOOD PLUM PUMP TUBING 1 EACH XX (15:54)
[2024-06-10] MEDS: ceFAZolin 2 GM/D5W 50 ML 2 GM/50 ML BAG IVPB (16:23)
--- NOTE | 2024-06-10 16:35 | PC.NURSE ---
Blood was not infusing per pump. Restarted pump at 60 ml/hr to start infusion.
[2024-06-11 00:06] LABS: Basophils Percent Auto 0.2 % (0.2-1.2); Eosinophils Absolute Auto 0.1 K/mm3 (0-0.3); Eosinophils Percent Auto 0.5 % (0-4.4); Hematocrit 28.9 % (37.0-47.0); Hemoglobin 10.1 g/dL (12.0-15.0); Immature Granulocyte Absolute 0.05 K/mm3 (0.00-0.031); Immature Granulocyte Percent A 0.5 % (0-0.5); Lymphocytes Absolute Auto 1.31 K/mm3 (0.9-3.2); Lymphocytes Percent Auto 12.9 % (18.3-44.2); Mean Corpuscular HGB Conc 34.9 g/dl (32-36); Mean Corpuscular Hemoglobin 31.6 pg (26-34); Mean Corpuscular Volume 90.3 fl (80-100); Mean Platelet Volume 10.2 fl (7.4-10.4); Monocytes Absolute Auto 0.9 K/mm3 (0.1-0.6); Monocytes Percent Auto 9.3 % (2.6-8.5); Neutrophils Absolute Auto 7.8 K/mm3 (1.3-6.7); Neutrophils Percent Auto 76.6 % (45.5-73.1); Platelet Count Result 133 k/mm3 (150-375); Red Cell Distribution Width 13.6 % (11.5-14.5); White Blood Count 10.1 K/mm3 (4.5-10.0)
[2024-06-11 05:46] VITALS: BP 129/86; PULSE 75; RESP 18; TEMP 36.8
[2024-06-11] MEDS: IBUPROFEN 600 MG TABLET PO ×2 (05:49→14:13)
[2024-06-11 06:09] LABS: Hematocrit 27.5 % (37.0-47.0); Hemoglobin 9.4 g/dL (12.0-15.0)
[2024-06-11 08:30] VITALS: BP 120/78; PULSE 66; RESP 18; TEMP 36.9; O2SAT 98
[2024-06-11] MEDS: DOCUSATE SODIUM 100 MG CAPSULE PO ×2 (08:46→16:02)
[2024-06-11] MEDS: POLYSACCHARIDE IRON COMPLEX 150 MG CAPSULE PO ×2 (08:46→16:02)
[2024-06-11] MEDS: MULTIVIT/MIN/PREN/FOL AC/IRON TABLET 1 TAB PO (08:46)
--- NOTE | 2024-06-11 09:03 | PM.OBPNVD ---
OB - PN: Subj Subjective Date/time seen: 06/11/24 09:03 Interval history: PPD#1 c/b 3.5L PPH Doing well, no symptoms of anemia Bleeding minimal S/p 2u pRBC Voiding without issue Tolerating general diet OB - PN: Obj Data Labs 06/11/24 05:39 Labs: Laboratory Results - last 24 hr 06/10/24 06/10/24 06/11/24 00:20 11:31 00:00 WBC 9.1 10.1 H RBC 3.33 L 3.20 L Hgb 10.7 L 10.1 L Hct 31.2 L 28.9 L MCV 93.7 90.3 MCH 32.1 31.6 MCHC 34.3 34.9 RDW 13.1 13.6 Plt Count 142 L 133 L MPV 10.3 10.2 Immature Gran % (Auto) 0.7 H 0.5 Neut % (Auto) 78.1 H 76.6 H Lymph % (Auto) 11.4 L 12.9 L [place] % (Auto) 9.3 H 9.3 H Eos % (Auto) 0.3 0.5 Baso % (Auto) 0.2 0.2 Lymph # (Auto) 1.04 1.31 [place] # (Auto) 0.9 H 0.9 H Eos # (Auto) 0.0 0.1 Baso # (Auto) 0.0 0.0 Abs Immat Gran (auto) 0.06 H 0.05 H Absolute Neuts (auto) 7.1 H 7.8 H Absolute Nucleated RBC 0.000 0.000 Nucleated RBC % 0.0 0.0 PT 13.6 INR 1.0 APTT 28.2 Fibrinogen 339 D-Dimer 0.69 H Blood Type B Positive Antibody Screen Negative Crossmatch See Detail 06/11/24 05:39 WBC RBC Hgb 9.4 L Hct 27.5 L MCV MCH MCHC RDW Plt Count MPV Immature Gran % (Auto) Neut % (Auto) Lymph % (Auto) [place] % (Auto) Eos % (Auto) Baso % (Auto) Lymph # (Auto) [place] # (Auto) Eos # (Auto) Baso # (Auto) Abs Immat Gran (auto) Absolute Neuts (auto) Absolute Nucleated RBC Nucleated RBC % PT INR APTT Fibrinogen D-Dimer Blood Type Antibody Screen Crossmatch OB - PN A/P Assessment and Plan (1) (spontaneous vaginal delivery): Code(s): O80 - Encounter for full-term uncomplicated delivery Status: Acute (2) hemorrhage: Code(s): O72.1 - Other immediate hemorrhage Status: Acute Assessment and Plan: - 3.5L PPH - s/p 2u pRBC - bleeding minimal - Hgb stable, 9.4 this AM - continue to monitor bleeding closely Plan day: 1 Plan: routine care Time Spent With Patient Time: Total time spent is greater than 50% in coordination of care (as documented) at patient's floor/unit and/or counseling patient: Review of Systems Review of Systems: All systems reviewed & are unremarkable except as noted in HPI and below Exam Const: General: comfortable and no acute distress Resp: Effort & Inspection: normal respiratory effort
--- NOTE | 2024-06-11 09:30 | PC.NURSE ---
0930 Consulted with patient to assess needs related to . Discussed with mother her successes, concerns and any questions she has. We reviewed working with the infant, supporting breast, protecting her nipples with an optimal deep latch, good positioning, and good hand washing. Encouraged understanding the benefits of skin to skin, responding to feeding cues, frequencies of feeding 8-12 times in 24 hours (approximately 2-3 hours), duration of feedings, milk production, intake/output feeding sheet and signs of adequate intake encouraging swallowing at the breast. Reviewed positioning and alignment, supporting breast, off-centered (asymmetrical latch) and leading with the chin with big, open, wide gape. latched optimally to the right breast in cross cradle position. Education given to the mother of how to visualize the suckling (with good rocking jaw motion) swallows (dropping of the lower jaw) and how to listen for drinking at the breast (the ka sound). The was able to maintain latch without discomfort to mother. Nipple care reviewed with optimal latch, mother's left nipple had small blister, good positioning and using clean hands when touching her breast. Resources used to facilitate learning were used from the mom and baby guide. Mother voiced understanding of the education shared, to call for assistance if the infant does not latch or if there is discomfort with . Reported to the Primary RN.
--- NOTE | 2024-06-11 14:28 | WPDANLDPN2 ---
Anes-Prog Note L&D Date/Time: 06/11/24 14:28 Comfortable throughout: labor and delivery Neuraxial method: epidural Epidural/Spinal procedure site: clean & non-tender Neuro status: Neuro function grossly intact. Cardiovascular status: normal Respiratory status: normal Airway patency: baseline Mental status: baseline Post-Op hydration status: normal Vital Signs: Last Vital Signs Temp 36.9 C 06/11/24 08:30 Pulse 66 06/11/24 08:30 Resp 18 06/11/24 08:30 BP 120/78 06/11/24 08:30 Pulse Ox 98 06/11/24 08:30 O2 Del Method Room Air 06/11/24 08:00 Pain score (VAS): 3/10 I/O: Intake & Output 06/10/24 06/11/24 06/11/24 23:59 07:59 15:59 Intake Total 328 Balance 328 Post-procedural complaints: none Patient feedback: Patient satisfied with anesthetic care.
[2024-06-11] MEDS: ACETAMINOPHEN 325 MG TABLET 650 MG PO (17:32)
[2024-06-11 22:10] VITALS: BP 110/75; PULSE 74; RESP 18; TEMP 37; O2SAT 99
[2024-06-12] MEDS: ACETAMINOPHEN 325 MG TABLET 650 MG PO ×2 (04:13→11:08)
[2024-06-12] MEDS: IBUPROFEN 600 MG TABLET PO ×2 (04:14→11:04)
[2024-06-12 07:30] VITALS: BP 116/77; PULSE 80; RESP 16; TEMP 37.3; O2SAT 100
[2024-06-12] MEDS: MULTIVIT/MIN/PREN/FOL AC/IRON TABLET 1 TAB PO (07:47)
[2024-06-12] MEDS: POLYSACCHARIDE IRON COMPLEX 150 MG CAPSULE PO (07:47)
[2024-06-12] MEDS: TETANUS,DIPHTHERIA,AC PERTUSSIS ADULT (0.5 ML) BOOSTRIX IM (07:48)
--- NOTE | 2024-06-12 07:57 | PM.OBPNVD ---
OB - PN: Subj Subjective Date/time seen: 06/12/24 07:57 Interval history: PPD#2 c/b 3.5L PPH Doing well, no symptoms of anemia Bleeding minimal S/p 2u pRBC Voiding without issue Tolerating general diet OB - PN: Obj Data Labs 06/11/24 05:39 OB - PN A/P Plan day: 2 Plan: routine care and discharge home Time Spent With Patient Time: Total time spent is greater than 50% in coordination of care (as documented) at patient's floor/unit and/or counseling patient: Review of Systems Review of Systems: All systems reviewed & are unremarkable except as noted in HPI and below Exam Const: General: cooperative and healthy appearing Chest: Chest palpation & inspection: normal inspection of the chest Resp: Effort & Inspection: normal respiratory effort Skin: General skin exam: normal color
--- NOTE | 2024-06-12 07:58 | PM.OBDSVD ---
DS: Admitting Diagnosis Discharge Date 06/12/24 Admitting Diagnosis IOL DS: Discharge Diagnosis Discharge Diagnosis (1) (spontaneous vaginal delivery): Code(s): O80 - Encounter for full-term uncomplicated delivery Status: Acute OB - DS: Summary OB Procedures : None OB Procedures Intrapartum: Spontaneous Vag Delivery OB Procedures: : None Peripartum Data Laceration Description: Labial Episiotomy description: None Time Spent with Patient Time attestation: Total time spent providing and/or coordinating discharge services: Discharge Plan Discharge Attending physician on discharge: Amrik Lane Consulting providers: Yadira Garcia Discharging Clinician: Yadira Garcia Patient Disposition: Home, Self-Care Activity: pelvic rest Diet: regular Patient Instructions: Antibiotic Form Stand Alone Forms: General Discharge Information Follow-up/Referrals: Yadira Garcia, BARBM [Certified Nurse Honeycomb Decapper] - 4 Weeks Discharge Medications: New ibuprofen 600 mg Tablet 600 mg PO Q6H PRN (Reason: Cramping) Qty: 30 0RF Continued valacyclovir [Valtrex] 500 mg Tablet 500 mg PO DAILY sertraline [Zoloft] 50 mg Tablet 50 mg PO DAILY Date of admission: 06/10/24 00:03 Primary Care Provider: PHYSICIAN,GRIDDLE ATTENDANT Admitting Provider: Amrik Lane Attending physician on admission: Amrik Lane Condition: Stable
--- NOTE | 2024-06-12 08:00 | PC.NURSE ---
Consulted with mother concerning needs and she shared her ability to independently latch infant optimally without pain. Observed baby latched to the right breast, mother declines any pain. Baby is swallowing frequently and mom feels like her milk is in. Mother is feeding appropriately for growth of and understands stimulating to eat if needed. Infant has had appropriate feedings in the last 24 hours meets the outcomes for weight, output, blood sugar and jaundice at this time. Reinforced understanding of milk production, transition of milk, signs of adequate intake, transition of stool, community resources, and when to call a provider using the resource of the feeding sheet along with the mom and baby guide. Mother voiced understanding of the information shared, is confident to continue effectively her at home, when to call for assistance, denies any additional assistance or education at this time. Reported to the Primary RN.
[2024-06-12] MEDS: MEASLES,MUMPS,RUBELLA VACCINE 0.5 ML VIAL SUB-Q (09:52)
--- NOTE | 2024-06-12 11:13 | PC.NURSE ---
Patient instructed on viewing the discharge video Mother & Baby Care, The First Two Weeks . Patient was given the opportunity and encouraged to ask questions. Patient verbalized understanding of information shared and has been given the mother/baby guide for home reference.
[2024-06-13 10:49] VITALS: BP 127/76; PULSE 85; RESP 18; TEMP 36.7; O2SAT 99
== END 2024-06-12 12:20 | disposition home or self-care (01) | DRG 542 ==
LOC: ANHLDR 00:06 → ANHOB2 17:08
PROVIDERS: Admitting Provider Advanced Practice Midwife; Visit Provider Obstetrics & Gynecology
DX: O36.5930 Maternal care for other known or suspected poor fetal growth, third trimester, not applicable or unspecified (principal); O70.0 First degree perineal laceration during delivery; O69.2XX0 Labor and delivery complicated by other cord entanglement, with compression, not applicable or unspecified; O67.8 Other intrapartum hemorrhage; O72.1 Other immediate postpartum hemorrhage; O62.3 Precipitate labor; Z3A.39 39 weeks gestation of pregnancy; Z37.0 Single live birth
CPT/HCPCS: 36415; 36430; 85014; 85018; 85025; 85380; 85384; 85610; 85730; 86592; 86703; 86850; 86900; 86901; 86923; 88307; 90710; 90715; A9270; G0432; J0690; J2210; J2405; J2590; J2795; J3010; J7120; P9016